=== PATIENT | male | born 1965 | race African-American/Black ===

== ENCOUNTER 2020-11-08 14:00 | Emergency (ER) | payer OTHER, MEDICAID ==
[2016-01-25 10:08] VITALS: BP 125/60
[~2020-11-08] VITALS: Ht 195.6 cm; Wt 75.0 kg
[~2020-11-08 14:00] MED LIST: DIPH25CA58 PO; NEOM7.5C2 TP
--- NOTE | 2020-11-08 15:23 | RAD ---
XR EXAM OF ANKLE_RIGHT 3VIEWS DATE: 11/08/2020 3:03 PM INDICATION: R ankle pain and swelling x1 day / Spl. Instructions: / History: COMPARISON: None. FINDINGS: Bones: There is no evidence of acute fracture or dislocation. Joints: The ankle mortise is congruent. No widening of the distal tibiofibular syndesmosis. Miscellaneous: None. IMPRESSION: No evidence of acute fracture. Electronically signed by: Antione Nash MD (11/08/2020 3:21 PM) [email or web address]
--- NOTE | 2020-11-08 15:33 | RAD ---
INDICATION: Reason: R leg pain today / Spl. Instructions: / History: COMPARISON: None. TECHNIQUE: Grayscale, color and doppler ultrasound images were obtained of the right lower extremity venous vasculature. RIGHT: No thrombus identified in the common femoral vein, femoral vein, popliteal vein or visualized calf ve ins. IMPRESSION: * No thrombus identified in deep venous system of right lower extremity. Electronically signed by: Jay Greco MD (11/08/2020 3:30 PM) [id number]
--- NOTE | 2020-11-08 16:01 | ED.ADGEN ---
Past Medical History Past Medical History: No Pertinent History Past Surgical History: Other Additional Past Surgical Histo: LEFT EYE RMVL 1996 Smoking Status: Current Every Day Smoker Alcohol Use: None Drug Use: None General Adult EDM: Chief Complaint: ANKLE PROBLEM HPI: HPI: Patient is a 55 year old AA male who presents emergency department with complaints of pain and swelling in his right ankle and right leg since awakening this morning. He denies any known injury, he states he might of twisted his ankle yesterday. Patient denies any numbness, tingling, or decreased sensation. He denies any difficulty with ambulation or weightbearing. Patient denies any fever, cough, shortness of breath, chest pain, palpitations, abdominal pain, nausea, vomiting, diarrhea, body aches, or fatigue. He denies any history of DVT or PE. The patient currently rates the pain a 5 out of 10 on the pain scale, he states the pain is worse with palpation and movement, better with rest. Review of Systems: Review of Systems: Complete ROS is negative unless otherwise noted in HPI. Allergies: Allergies: Allergies Coded Allergies Type Severity Reaction Last Updated Verified shellfish derived Allergy Intermediate 11/08/20 Yes Physical Exam: PE: See Above Constitutional: Well developed, well nourished, no acute distress, non-toxic appearance. [] HENT: Normocephalic, atraumatic, bilateral external ears normal, nose normal. [] Eyes: PERRLA, EOMI, conjunctiva normal, no discharge. [] Neck: Normal range of motion, no stridor. [] Cardiovascular:Heart rate regular rhythm Lungs & Thorax: Respirations even and unlabored, no retractions, no respiratory distress Abdomen: soft, no tenderness Skin: Warm, dry, no erythema, no rash. [] Extremities: Right ankle: 2+ edema, no obvious deformity, no crepitus, grinding +2 seconds, sensation intact, no cyanosis, ROM intact, no erythema/warmth Neurologic: Alert and oriented X 3, normal motor, normal sensory, no focal deficits noted. [] Psychologic: Affect normal, judgement normal, mood normal. [] Current Patient Data: Vital Signs: Vital Signs Date Time Temp Pulse Resp B/P (MAP) Pulse Ox O2 Delivery O2 Flow Rate FiO2 11/08/20 14:48 98.5 67 18 127/76 (93) 99 Room Air 98.5 EKG: EKG: [] Heart Score: C/O Chest Pain: No Risk Scores: Score 0 - 3: 2.5% MACE over next 6 weeks - Discharge Home Score 4 - 6: 20.3% MACE over next 6 weeks - Admit for Clinical Observation Score 7 - 10: 72.7% MACE over next 6 weeks - Early Invasive Strategies Radiology/Procedures: Radiology/Procedures: PROCEDURE: VENOUS LOWER EXTREMITY RIGHT INDICATION: Reason: R leg pain today / Spl. Instructions: / History: COMPARISON: None. TECHNIQUE: Grayscale, color and doppler ultrasound images were obtained of the right lower extremity venous vasculature. RIGHT: No thrombus identified in the common femoral vein, femoral vein, popliteal vein or visualized calf veins. IMPRESSION: * No thrombus identified in deep venous system of right lower extremity. Electronically signed by: Jay Greco MD (11/08/2020 3:30 PM) [id number] PROCEDURE: ANKLE RIGHT 3V XR EXAM OF ANKLE_RIGHT 3VIEWS DATE: 11/08/2020 3:03 PM INDICATION: R ankle pain and swelling x1 day / Spl. Instructions: / History: COMPARISON: None. FINDINGS: Bones: There is no evidence of acute fracture or dislocation. Joints: The ankle mortise is congruent. No widening of the distal tibiofibular syndesmosis. Miscellaneous: None. IMPRESSION: No evidence of acute fracture. Electronically signed by: Antione Nash MD (11/08/2020 3:21 PM) [id number] [] Course & Med Decision Making: Course & Med Decision Making Pertinent Labs and Imaging studies reviewed. (See chart for details) [] Dragon Disclaimer: Dragon Disclaimer: This electronic medical record was generated, in whole or in part, using a voice recognition dictation system. Departure Departure Impression: Primary Impression: Pain and swelling of right ankle Disposition: 01 HOME / SELF CARE / HOMELESS Condition: STABLE Referrals: LUISA CASTRO MD Patient Instructions: Ankle Pain Additional Instructions: You may take Tylenol or ibuprofen as needed for pain. Recommend application of ice, elevation, and rest of affected extremity. Wear the splint that was placed until follow up appointment with Dr Castro. Return to the ER if your symptoms worsen or fever develops. ANTONIA DHALIWAL [employer] Nov 08, 2020 16:00
== END 2020-11-08 16:10 | disposition home or self-care (01) ==
LOC: ER 14:00
DX: M25.571 Pain in right ankle and joints of right foot (principal); R22.41 Localized swelling, mass and lump, right lower limb; F17.200 Nicotine dependence, unspecified, uncomplicated; Z91.013 Allergy to seafood
CPT/HCPCS: 29515; 73610; 93971; 99284